=== PATIENT | male | born 1965 | race Two or more races ===

== ENCOUNTER 2019-09-29 09:36 | Outpatient (CLI) | payer OTHER | END 2019-09-29 09:39 | disposition home or self-care (01) | LOC: RX STUDY 09:36 | PROVIDERS: ATTEND Internal Medicine Gastroenterology | DX: R13.19 Other dysphagia (principal) ==

== ENCOUNTER 2020-02-21 07:00 | Day surgery (SDC) | payer OTHER ==
[~2020-02-21 07:00] MED LIST: ANTIVERT PO; AVAPRO150 MG PO; CRESTOR20 MG PO; DESYREL PO; RISPERDAL0.5 MG PO; SYNTHROID75 MCG PO
== END 2020-02-21 15:20 | disposition home or self-care (01) ==
LOC: CIR.AMB 07:00
PROVIDERS: ATTEND Specialist
DX: D24.2 Benign neoplasm of left breast (principal); Z20.828 Contact with and (suspected) exposure to other viral communicable diseases